=== PATIENT | female | born 1990 | race Caucasian/White ===

== ENCOUNTER 2023-01-29 16:00 | Outpatient (CLI) | payer OTHER | END 2023-01-29 16:01 | disposition home or self-care (01) | LOC: BICRAD 16:00 | PROVIDERS: ATTEND Student in an Organized Health Care Education/Training Program | DX: M54.9 Dorsalgia, unspecified (principal); Y09 Assault by unspecified means | CPT/HCPCS: 72040; 72072; 72100 ==